=== PATIENT | female | born 1995 | race Caucasian/White ===

== ENCOUNTER 2017-08-06 02:13 | Emergency (ER) | payer MEDICAID ==
[~2017-08-06] VITALS: Ht 154.9 cm; Wt 63.5 kg
--- NOTE | 2017-08-06 02:20 | NUR ---
Dr. Nolen at bedside for MSE.
[2017-08-06] MEDS ORDERED: KETOROLAC TROMETHAMINE 30 MG INJ IVP ONE (02:45)
[2017-08-06] MEDS ORDERED: IV NORMAL SALINE 1000 ML BAG IV ONE (02:45)
[2017-08-06] MEDS ORDERED: ONDANSETRON 4 MG/2 ML VIAL IV ONE (02:45)
[2017-08-06] MEDS ORDERED: ONDANSETRON 4 MG/2 ML VIAL ONE (02:47)
[2017-08-06] MEDS ORDERED: KETOROLAC TROMETHAMINE 30 MG INJ ONE (02:47)
[2017-08-06 03:03] LABS: BASOPHILS % (AUTO) 0.1 % (0.0-2.0); EOSINOPHILS % (AUTO) 0.1 % (0.0-7.0); HEMATOCRIT 37.7 % (31.2-41.9); HEMOGLOBIN 12.9 g/dL (10.9-14.3); LYMPHOCYTES # (AUTO) 0.4 K/uL (20.0-40.0); LYMPHOCYTES % (AUTO) 3.8 % (20.5-74.5); MEAN CORPUSCULAR HEMOGLOBIN 26.9 uug (24.7-32.8); MEAN CORPUSCULAR HGB CONC 34 g/dL (32.3-35.6); MEAN CORPUSCULAR VOLUME 78.5 fL (75.5-95.3); MONOCYTES # (AUTO) 0.5 K/uL (2.0-10.0); MONOCYTES % (AUTO) 4.8 % (0-11); NEUTROPHILS # (AUTO) 9.4 K/uL (1.8-8.9); NEUTROPHILS % (AUTO) 91.2 % (31.5-64.5); PLATELET COUNT (AUTO) 258 K/uL (179-408); WHITE BLOOD COUNT (AUTO) 10.3 K/uL (3.8-11.8)
[2017-08-06] MEDS ORDERED: DICYCLOMINE HCL 10 MG/5 ML UDC LIQ ONE (03:15)
[2017-08-06] MEDS ORDERED: DICYCLOMINE HCL 10 MG/5 ML UDC LIQ PO ONE (03:15)
[2017-08-06] MEDS ORDERED: DIPHENOXYLATE HCL/ATROP SULF TABLET PO ONE (03:15)
[2017-08-06] MEDS ORDERED: ACETAMINOPHEN ES 500 MG TABLET PO ONE (03:15)
[2017-08-06] MEDS ORDERED: ACETAMINOPHEN ES 500 MG TABLET ONE (03:15)
[2017-08-06] MEDS ORDERED: DIPHENOXYLATE HCL/ATROP SULF TABLET ONE (03:17)
--- NOTE | 2017-08-06 03:27 | NUR ---
Patient reports nausea has improved and abdominal pain also has decreased. MD notified.
[2017-08-06 03:36] LABS: BILIRUBIN,DIRECT 0.2 mg/dL (0.0-0.2); BILIRUBIN,TOTAL 0.8 mg/dL (0.2-1.0); CREATININE 0.7 mg/dL (0.6-1.3); POTASSIUM 3.1 mmol/L (3.5-5.1); TOTAL PROTEIN, SERUM 7.8 g/dL (6.4-8.2)
--- NOTE | 2017-08-06 03:49 | NUR ---
Patient reports feeling better, not nauseous, rechecked temperature 99.1 F oral. notified.
--- NOTE | 2017-08-06 04:05 | NUR ---
Patient discharged to home in stable conditon. Written and verbal after care instructions given. Patient verbalizes understanding of instructions. Patient out of ER with steady gait, VSS, no acute signs of distress, all belongings taken, patient with mother via private vehicle.
[2017-08-06 04:09] VITALS: BP 114/56
== END 2017-08-06 04:05 | disposition home or self-care (01) ==
LOC: ER 02:13
DX: R11.2 Nausea with vomiting, unspecified (principal); R19.7 Diarrhea, unspecified
CPT/HCPCS: 36415; 80048; 80076; 83690; 84703; 85025; 96361; 96374; 96375; 99284; A4663; A9150; J1885; J2405; J7030

== ENCOUNTER 2021-11-22 10:38 | Emergency (ER) | payer MEDICAID ==
[~2021-11-22] VITALS: Ht 154.9 cm; Wt 58.1 kg
[2021-11-22] MEDS ORDERED: IV NORMAL SALINE 1000 ML BAG IV ONE (10:45)
[2021-11-22] MEDS ORDERED: ONDANSETRON 4 MG/2 ML VIAL IV ONE ×2 (10:45→12:15)
[2021-11-22 11:04] LABS: *BILIRUBIN,URIN NEGATIVE (NEGATIVE); *BLOOD, URINE NEGATIVE (NEGATIVE); *CLARITY,URINE CLEAR (CLEAR); *COLOR,URINE YELLOW (YELLOW); *KETONES,URINE TRACE (NEGATIVE); *UROBILINOGEN,URINE 0.2 E.U./dl (NORMAL); LEUKOCYTE ESTERASE ,URINE NEGATIVE (NEGATIVE); NITRITE, URINE NEGATIVE (NEGATIVE); UGLUCOSE NEGATIVE (NEGATIVE)
[2021-11-22] MEDS ORDERED: ONDANSETRON 4 MG/2 ML VIAL ONE ×2 (11:07→12:17)
[2021-11-22] MEDS ORDERED: LIDOCAINE VISCUS 2% 15 ML UDC MM ONE (11:15)
[2021-11-22] MEDS ORDERED: MAG HYDROX/AL HYDROX/SIMETH 30 ML LIQUID UDC PO ONE (11:15)
[2021-11-22] MEDS ORDERED: FAMOTIDINE. 20 MG/2 ML VIAL IV ONE ×2 (11:15→11:20)
[2021-11-22] MEDS ORDERED: LIDOCAINE VISCUS 2% 15 ML UDC ONE (11:18)
[2021-11-22 11:19] LABS: HEMATOCRIT 40.9 % (31.2-41.9); MEAN CORPUSCULAR HEMOGLOBIN 28.9 uug (24.7-32.8); PLATELET COUNT (AUTO) 225 K/uL (179-408)
[2021-11-22 11:23] LABS: BACTERIA,URINE FEW /HPF (NONE SEEN); RBC,URINE NONE SEEN /HPF (0-3); SQUAMOUS EPITHELIAL CELL,UR MODERATE /HPF (NONE SEEN)
[2021-11-22 11:24] LABS: WBC,URINE 0-3 /HPF (0-3)
[2021-11-22 11:25] LABS: CARBON DIOXIDE 29 mmol/L (21-32); CHLORIDE 102 mmol/L (98-107); CREATININE 0.7 mg/dL (0.6-1.3); GLUCOSE 104 mg/dL (74-106); POTASSIUM 3.7 mmol/L (3.5-5.1); UREA NITROGEN, BLOOD 15 mg/dL (7-18)
[2021-11-22 11:31] LABS: ALANINE AMINOTRANSFERASE 22 U/L (14-59); ALKALINE PHOSPHATASE 72 U/L (50-136); ASPARTATE AMINOTRANSFERASE 14 U/L (15-37); BILIRUBIN,DIRECT 0.3 mg/dL (0.0-0.2); BILIRUBIN,TOTAL 1.4 mg/dL (0.2-1.0); LIPASE 57 U/L (73-393); TOTAL PROTEIN, SERUM 8.5 g/dL (6.4-8.2)
[2021-11-22] MEDS ORDERED: FAMO-132 PO ×2 (11:36→13:13)
[2021-11-22] MEDS ORDERED: ONDA4TAB5 PO ×2 (11:36→13:13)
--- NOTE | 2021-11-22 12:23 | NUR ---
ORDERED MAALOX NOT GIVEN - OUT OF STOCK . MD AND PHARMACY NOTIFIED.
--- NOTE | 2021-11-22 12:24 | NUR ---
PT MEDICATED FOR PERSISTENT NAUSEA.
--- NOTE | 2021-11-22 13:20 | NUR ---
Pt tolorated Po intake, denies nausea at this time.
[2021-11-22 13:23] VITALS: BP 120/66
--- NOTE | 2021-11-22 13:23 | NUR ---
IV removed. Catheter intact and site benign. Pressure and 4x4 gauze applied to site. No bleeding noted.
--- NOTE | 2021-11-22 13:42 | NUR ---
Patient discharged to home in stable condition. Written and verbal after care instructions given. Patient verbalizes understanding of instructions. Stressed follow up or return to ER for worsening s/s.
== END 2021-11-22 13:45 | disposition home or self-care (01) ==
LOC: ER 10:38
DX: R10.13 Epigastric pain (principal); R11.2 Nausea with vomiting, unspecified; R19.7 Diarrhea, unspecified
CPT/HCPCS: 36415; 80048; 80076; 81001; 83690; 84702; 85025; 96361; 96374; 96375; 96376; 99284; J2405 ×2; J3490; J7040; A4663